=== PATIENT | male | born 1985 | race American Indian/Alaskan Native ===

== ENCOUNTER 2017-01-22 08:21 | Emergency (ER) | payer SELFPAY ==
[2017-01-22 08:28] VITALS: BP 131/75
[2017-01-22] MEDS ORDERED: BOOSTRIX IM ONE (09:49)
--- NOTE | 2017-01-22 09:54 | Emergency Department Report ---
Abscess Boil HPI - HPI Chief Complaint: Skin/Abscess/Foreign Body Stated Complaint: STEPPED ON NAIL RT FOOT Time Seen by Provider: 01/22/17 09:23 Duration: 5 Days Location: Lower Extremity Severity: None History: Yes Purulent Drainage, No Fever, No Pain, No Numbness, No Foreign Body , No Previous History, No Insect Bite HPI: This is a 31-year-old male nontoxic, well nourished in appearance, no acute signs of distress presents to the ED complaining of heel drainage status post stepping on a rest the nail that occurred 5 days ago. Patient stated the area is draining slightly with pus. Patient stated he was wearing slippers during acciedent. Denies any numbness or tingling. Denies any fever, chills, heal pain, body aches, muscle pain, nausea, vomiting, chest pain shortness of breath. Patient denies headache. Denies blurred vision. Patient stated does not remember his last tetanus shot. Patient denies any allergies or past history. Home Medications: Previous Rx's Medication Instructions Recorded Last Taken Type Ciprofloxacin HCl [Ciprofloxacin 750 mg PO BID #14 tablet 01/22/17 Unknown Rx TAB] Ibuprofen [Motrin 600 MG tab] 600 mg PO Q8H PRN #30 tablet 01/22/17 Unknown Rx Allergies/Adverse Reactions: Allergies Allergy/AdvReac Type Severity Reaction Status Date / Time No Known Allergies Allergy Unverified 01/22/17 08:28 ED Review of Systems ROS: Stated complaint: STEPPED ON NAIL RT FOOT Other details as noted in HPI Constitutional: denies: chills, fever Eyes: denies: eye pain, eye discharge, vision change ENT: denies: ear pain, throat pain Respiratory: denies: cough, shortness of breath, wheezing Cardiovascular: denies: chest pain, palpitations Endocrine: no symptoms reported Gastrointestinal: denies: abdominal pain, nausea, diarrhea Genitourinary: denies: urgency, dysuria Musculoskeletal: denies: back pain, joint swelling, arthralgia Skin: denies: rash, lesions Neurological: denies: headache, weakness, paresthesias Psychiatric: denies: anxiety, depression Hematological/Lymphatic: denies: easy bleeding, easy bruising ED Past Medical Hx - Past Medical History Previous Medical History?: No - Surgical History Past Surgical History?: No - Social History Smoking Status: Never Smoker Substance Use Type: None - Medications Home Medications: Home Medications Medication Instructions Recorded Confirmed Last Taken Type Ciprofloxacin HCl [Ciprofloxacin 750 mg PO BID #14 tablet 01/22/17 Unknown Rx TAB] Ibuprofen [Motrin 600 MG tab] 600 mg PO Q8H PRN #30 tablet 01/22/17 Unknown Rx ED Abscess Boil Physical Exam - Exam General: Vital signs noted. No distress. Alert and acting appropriately. GENERAL: The patient is a well-developed, well-nourished female in no apparent distress. Patient is alert and acting appropriately for age. Alert and oriented 3, no apparent distress, normal gait, atraumatic. HEENT: Head is normocephalic and atraumatic. PERRL, Extraocular muscles are intact. Pupils are equal, round, and reactive to light and accommodation. Nares appeared normal. Mouth is well hydrated and without lesions. Mucous membranes are moist. Posterior pharynx clear of any exudate or lesions. Mouth is well hydrated and without lesions. Tonsils not erythematous or swollen. Uvula midline. Tongue elevated. Mucous members are moist. Posterior pharynx clear, no exudate or lesions. Patent airways. NECK: Supple. No carotid bruits. No lymphadenopathy or thyromegaly.nontender. No meningitic signs are noted. LUNGS: Clear to auscultation. Non labor breathing. No intercostal retractions. Symmetrical with respiration, no wheezing, no rales, or crackles. HEART: Regular rate and rhythm without murmur, rubs or gallops. No reproducible. S1, S2 present, regular rate and rhythm without murmur, no rubs, no gallops. ABDOMEN: Soft, nontender, and nondistended. Positive bowel sounds. No hepatosplenomegaly was noted. No guarding or rebound tenderness, negative epigastric bruit. Negative psoas sign, negative fuentes sign, negative McBurneys sign EXTREMITIES: Without any cyanosis, clubbing, rash, lesions or edema. Peripheral pulses intact. Capillary refill less than 2 seconds. Full range of motion bilaterally. NEUROLOGIC: Cranial nerves II through XII are grossly intact. Alert and oriented x 3. Normal gait. Symmetrical strength and sensation. Reflexes 2+ throughout. Cerebellar testing normal. GCS score of 15. PSYCHIATRIC: Normal affect with no suicidal or homicidal ideations. Skin: 1cm superficial induration and fluctuance noted on the right foot of the heel. Front/Back of Body, Lg (Color): 1 - abscess Size: 1 cm Exam: Yes Fluctuance, Yes Normal Neurologic Exam, Yes Normal Circulation, No Tenderness, No Surrounding Cellulites/Erythema, No Lymphangitis, No Crepitation , No Heart Murmur I & D Note - I & D Note I & D Note: Under sterile field, I used Betadine to cleanse the area. I did not use any local due to abscess being very superficial just under the skin fold. I used an 11 blade to make a 1 cm incision. About 2 mL's of purulent drainage has been noted. I then used a hemostat to break the abscess formation. I then used sterile 0.9% normal saline flush to flush the wound with total volume of 40 mL used. I then put a 1/4 iodoform packing to the incision. A sterile 4 x 4 with tape has been applied as dressing. Bleeding is under control. Patient tolerated the procedure well with no signs of distress noted. ED Course Vital Signs 01/22/17 08:26 Temperature 98 F Pulse Rate 18 L Respiratory 18 Rate Blood Pressure 131/75 O2 Sat by Pulse 100 Oximetry - Reevaluation(s) Reevaluation #1: 01/22/17 10:00 Patient is speaking in full sentences with no signs of distress noted. Critical care attestation.: If time is entered above; I have spent that time in minutes in the direct care of this critically ill patient, excluding procedure time. ED Medical Decision Making - Radiology Data Radiology results: report reviewed interpreted by me: Dictated by radiologist Normal examination with no signs of osteomyelitis or foreign body - Medical Decision Making 31-year-old male that presents with a superficial abscess to the right heel status post stepping on a rest the nail. Successful I&D has been performed with no signs of any abnormalities patient thought her well. He was instructed to return in 2 days for reassessment and packing removal. Patient was educated on proper wound care. Patient will be discharged with ibuprofen and Cipro after d/c. X-ray has been obtained with negative findings of any abnormalities. Wound has been placed and cleaned with 4 x 4's. Patient received tetanus booster. Patient was instructed to follow-up with a primary care doctor in 3-5 days or if symptoms worsen and continue return to emergency room as soon as possible possible. At time time of discharge, the patient does not seem toxic or ill in appearance. No acute signs of distress noted. Patient agrees to discharge treatment plan of care. No further questions noted by the patient. ED Disposition Clinical Impression: Puncture wound Disposition: [id number] TO HOME OR SELFCARE Is pt being admited?: No Does the pt Need Aspirin: No Condition: Stable Instructions: Puncture Wound (ED), Ciprofloxacin (By mouth), Ibuprofen (By mouth), Acute Wound Care (ED) Additional Instructions: Return in 2 days for reassessment of the wound. Follow-up with a primary care doctor in 3-5 days or if symptoms worsen and continue return to emergency room as soon as possible possible. Keep wound clean and dry. Wash area with soap and water daily. Prescriptions: Ciprofloxacin HCl [Ciprofloxacin TAB] 750 mg PO BID #14 tablet Ibuprofen [Motrin 600 MG tab] 600 mg PO Q8H PRN #30 tablet PRN Reason: Pain Referrals: PRIMARY CAREMD [Primary Care Provider] - 3-5 Days ALEJANDRO ALVARADO MD [Staff Physician] - 3-5 Days [facility] [Outside] - 3-5 Days [facility] [Outside] - 3-5 Days Forms: Work/School Release Form(ED)
--- NOTE | 2017-01-22 10:17 | XRay Report ---
RIGHT FOOT, 3 views: History: Injury. The bony architecture is intact. Bony alignment is normal. No soft tissue abnormalities are seen. The joint spaces appear preserved. IMPRESSION: Normal right foot.
== END 2017-01-22 10:56 | disposition home or self-care (01) ==
LOC: ED 08:21
DX: S91.331A Puncture wound without foreign body, right foot, initial encounter (principal); W22.09XA Striking against other stationary object, initial encounter; Y93.89 Activity, other specified; Y92.89 Other specified places as the place of occurrence of the external cause; Y99.8 Other external cause status
CPT/HCPCS: 90471; 90715; 99283

== ENCOUNTER 2018-05-04 10:22 | Emergency (ER) | payer SELFPAY ==
[2018-05-04] MEDS ORDERED: XYLOCAINE 2% INFILTRATI ONE ×2 (10:57→11:05)
[2018-05-04] MEDS ORDERED: XYLOCAINE 1% 20 mL INFILTRATI ONE (10:58)
[2018-05-04] MEDS ORDERED: IBUPROFEN PO ONE (10:59)
--- NOTE | 2018-05-04 11:21 | Emergency Department Report ---
ED Laceration HPI - HPI Chief Complaint: Wound/Laceration Stated Complaint: CUT BY SAW Time Seen by Provider: 05/04/18 10:49 Location: Upper Extremity Severity: moderate Tetanus Status: Up to Date Laceration Symptoms: Yes Pain, No Foreign Body Sensation, No Numbness, No Weakness Other History: This is a 32-year-old male who presents to ED with a laceration to the lateral aspect of his wrist. Patient states that he was at work and accidentally cut himself with a saw. Patient states his tetanus is up-to-date and he had one 2 years ago. ED Review of Systems ROS: Stated complaint: CUT BY SAW Other details as noted in HPI Comment: All other systems reviewed and negative ED Past Medical Hx - Past Medical History Previous Medical History?: No - Surgical History Past Surgical History?: No - Social History Smoking Status: Never Smoker Substance Use Type: None - Medications Home Medications: Home Medications Medication Instructions Recorded Confirmed Last Taken Type Ciprofloxacin HCl [Ciprofloxacin 750 mg PO BID #14 tablet 01/22/17 Unknown Rx TAB] Ibuprofen [Motrin 600 MG tab] 600 mg PO Q8H PRN #30 tablet 05/04/18 Unknown Rx cephALEXin [Keflex] 500 mg PO Q12HR #10 cap 05/04/18 Unknown Rx Laceration Physical Exam - Exam General: Vital signs noted. No distress. Alert and acting appropriately. Wound Length (cm): 3 Laceration Location: Upper Extremity (left lateral wrist) Full Body Front + Back: 1 - 2-3 cm open laceration Laceration Exam: Yes Normal Distal CMS, No Foreign Body, No Exposed Tendon, Vessel, or Nerve, No Tendon Injury ED Course Vital Signs 05/04/18 10:26 Temperature 98.1 F Pulse Rate 77 Respiratory 16 Rate Blood Pressure 130/64 O2 Sat by Pulse 100 Oximetry - Laceration /Wound Repair Left Medial Wrist Wound Location: upper extremity Wound Length (cm): 3 Wound's Depth, Shape: superficial, linear Irrigated w/ Saline (ccs): 100 Betadine Prep?: Yes Anesthesia: 1% Lidocaine Volume Anesthetic (ccs): 4 Wound Repaired With: sutures Suture Size/Type: 4:0 Number of Sutures: 10 Sterile Dressing Applied?: Yes ED Medical Decision Making - Medical Decision Making The 3cm laceration wound was prepped and draped in sterile fashion. Anesthesia was achieved with 4mL of 1% lidocaine. The wound was irrigated with 100cc NS and explored. There were no foreign bodies The wound was reapproximated in 1 layer suing with 4-0 monofilament sutures in the dermis with continuous sutures percutaneously. 10 stitches There was excellent reapproximation of the wound edges. The patient tolerated the procedure without complication. Discussed the patient to return in 7-10 days for suture removal Vital signs are normal patient is in no acute distress Critical care attestation.: If time is entered above; I have spent that time in minutes in the direct care of this critically ill patient, excluding procedure time. ED Disposition Clinical Impression: Laceration of wrist without complication Disposition: TO HOME OR SELFCARE Is pt being admited?: No Does the pt Need Aspirin: No Condition: Stable Instructions: Suture Care (ED), Laceration (ED), Suture Removal (ED) Additional Instructions: Make sure to follow up with the primary care physician as discussed. Take all your medications as you've been prescribed. If you have any worsening symptoms or develop new symptoms please return to ED immediately. Prescriptions: cephALEXin [Keflex] 500 mg PO Q12HR #10 cap Ibuprofen [Motrin 600 MG tab] 600 mg PO Q8H PRN #30 tablet PRN Reason: Pain Referrals: ROGER MCCORD MD [Primary Care Provider] - 3-5 Days Forms: Work/School Release Form(ED) Time of Disposition: 11:23
[2018-05-04 12:37] VITALS: BP 123/70
== END 2018-05-04 12:36 | disposition home or self-care (01) ==
LOC: ED 10:22
DX: S61.512A Laceration without foreign body of left wrist, initial encounter (principal); W45.8XXA Other foreign body or object entering through skin, initial encounter; Y93.89 Activity, other specified; Y92.89 Other specified places as the place of occurrence of the external cause; Y99.8 Other external cause status